=== PATIENT | male | born 1985 | race Hispanic/Latino ===

== ENCOUNTER → 2024-09-21 | Outpatient (CLI) | payer BC ==
--- NOTE | 2024-09-21 12:10 | EKG ---
[facility] Test Date: 2024-09-21 Test Time: 09:10:00 Pat Name: ALEXEI BERNARDO Department: LAB Patient [place]: [facility] [id number] Room: Gender: M Cost Consultant: [id number] : 1985 Requested By: SELWYN LAWTON Order Number: [id number] Reading MD: Roland Adams Measurements Intervals [place] Rate: 48 P: 38 [place]: 150 QRS: 57 QRSD: 86 T: 22 QT: 398 QTc: 355 Interpretive Statements Sinus bradycardia No previous ECG available for comparison Electronically Signed On 09-21-2024 16:47:00 CDT by Roland Adams Please click the below link to view image of tracing.
== END | disposition home or self-care (01) ==
LOC: LAB 08:24
PROVIDERS: ATTEND Family Medicine
DX: R00.1 Bradycardia, unspecified (principal); R07.9 Chest pain, unspecified
CPT/HCPCS: 93005